=== PATIENT | male | born 1955 | race Asian ===

== ENCOUNTER 2016-09-17 05:38 | Day surgery (SDC) | payer OTHER ==
[~2016-09-17] VITALS: Ht 162.6 cm; Wt 60.0 kg
[2016-09-17] MEDS ORDERED: SODIUM CHLORIDE 0.9% 1,000 ML IV ONE ×2 (06:06→06:15)
[2016-09-17] MEDS ORDERED: GEMF600T3 PO (06:57)
[2016-09-17] MEDS ORDERED: MONT10TA21 PO (06:57)
[2016-09-17] MEDS ORDERED: ASPI-1093 PO (06:57)
[2016-09-17] MEDS ORDERED: BECL8.7A5 IH (06:57)
[2016-09-17] MEDS ORDERED: MIDAZOLAM HCL 2 MG/2 ML VIAL ONE (07:51)
[2016-09-17] MEDS ORDERED: FentaNYL CITRATE-PF 100 MCG/2 ML VIAL ONE (07:52)
[2016-09-17] MEDS ORDERED: MethylPREDNISolone SOD SUCC 125 MG/2 ML VIAL IVP ONE (08:30)
[2016-09-17] MEDS ORDERED: ALBUTEROL SULFATE 2.5 MG/0.5 ML NEB SOLUTION NEB ONE (16:34)
[2016-09-17] MEDS ORDERED: BENZOCAINE 20% 50 MCG/SPRAY 57 GM TP ONE (16:34)
[2016-09-17] MEDS ORDERED: LIDOCAINE HCL 2% 30 ML JELLY TP ONE (16:34)
[2016-09-17] MEDS ORDERED: LIDOCAINE HCL 4% 50 ML SOLUTION TP ONE (16:34)
[2016-09-17] MEDS ORDERED: EPINEPHrine 1:1,000 [1 MG/ML] AMP IM ONE (16:34)
[2016-09-17] MEDS ORDERED: OXYGEN THERAPY IH SCH (20:00)
== END 2016-09-17 09:40 | disposition home or self-care (01) ==
LOC: SURGERY 05:38
PROVIDERS: ATTEND Internal Medicine Critical Care Medicine
DX: J38.4 Edema of larynx (principal); B37.0 Candidal stomatitis; M19.90 Unspecified osteoarthritis, unspecified site; K21.9 Gastro-esophageal reflux disease without esophagitis
CPT/HCPCS: 31623; 31624; 71010; 87015 ×2; 87070; 87101; 87147; 87205; 87220; 88108; 88312; J0171; J2250; J2930; J3010; J7030

== ENCOUNTER 2021-01-21 06:19 | Day surgery (SDC) | payer OTHER ==
[2021-01-18 08:54] LABS: COVID AG,FIA SOURCE NASOPHARYNGEAL
[~2021-01-21] VITALS: Ht 165.1 cm; Wt 61.7 kg
[~2021-01-21 06:19] MED LIST: ASPI-1444 PO; CHOL200016 PO; EZET10TA57 PO; FENO67CA8 PO; ICOS1CAP PO; METO-558 PO; MONT-35 PO; OMEG-102 PO; ROSU20TA73 PO; SODIUM CHLORIDE 0.9% 1,000 ML ONE
[2021-01-21] MEDS ORDERED: ALBUTEROL SULFATE 2.5 MG/0.5 ML NEB SOLUTION NEB ONE (06:20)
[2021-01-21] MEDS ORDERED: BENZOCAINE 20% 50 MCG/SPRAY 57 GM TP ONE (06:20)
[2021-01-21] MEDS ORDERED: LIDOCAINE 2% 30 ML JELLY TP ONE (06:20)
[2021-01-21] MEDS ORDERED: SODIUM CHLORIDE 0.9% 1,000 ML IV ONE (06:30)
[2021-01-21] MEDS ORDERED: FentaNYL CITRATE PF 100 MCG/2 ML VIAL ONE (07:23)
[2021-01-21] MEDS ORDERED: MIDAZOLAM HCL 5 MG/ML VIAL ONE (07:23)
[2021-01-21 08:10] LABS: GLUCOMETER DEV NAME(LOC) SDS.; GLUCOSE,POINT OF CARE 118 MG/DL (70-110)
[2021-01-21] MEDS ORDERED: MethylPREDNISolone SOD SUCC 125 MG/2 ML VIAL IVP ONE (09:00)
[2021-01-21] MEDS ORDERED: MethylPREDNISolone SOD SUCC 125 MG/2 ML VIAL ONE (09:18)
[2021-01-21] MEDS ORDERED: OXYGEN THERAPY IH SCH (20:00)
== END 2021-01-21 10:50 | disposition home or self-care (01) ==
LOC: SURGERY 06:19
PROVIDERS: ATTEND Internal Medicine Critical Care Medicine
DX: J38.4 Edema of larynx (principal); B37.0 Candidal stomatitis; E11.9 Type 2 diabetes mellitus without complications; E78.00 Pure hypercholesterolemia, unspecified; I10 Essential (primary) hypertension; Z87.891 Personal history of nicotine dependence; Z72.89 Other problems related to lifestyle; J45.909 Unspecified asthma, uncomplicated; Z79.82 Long term (current) use of aspirin; Z98.890 Other specified postprocedural states
CPT/HCPCS: 31623; 31624; 71045; 82962; 87015; 87070; 87101; 87205; 87206; 87220; 87426; 88108; 88184; 88185; 88312; C9803; J2250; J2930; J3010; J7030; J7613

== ENCOUNTER 2022-10-06 06:14 | Day surgery (SDC) | payer OTHER ==
[~2022-10-06] VITALS: Ht 165.1 cm; Wt 63.6 kg
[~2022-10-06 06:14] MED LIST changes: -CHOL200016 PO; +CHOL200059 PO; +FENO67CA16 PO; -FENO67CA8 PO; -SODIUM CHLORIDE 0.9% 1,000 ML ONE
[2022-10-06] MEDS ORDERED: BENZOCAINE 20% 50 MCG/SPRAY 57 GM TP ONE (06:15)
[2022-10-06] MEDS ORDERED: LIDOCAINE 2% 11 ML JELLY TP ONE (06:15)
[2022-10-06] MEDS ORDERED: LIDOCAINE 4% 50 ML SOLUTION TP ONE (06:15)
[2022-10-06] MEDS ORDERED: SODIUM CHLORIDE 0.9% 1,000 ML IV ONE (07:00)
[2022-10-06] MEDS ORDERED: METF-81 PO (07:18)
[2022-10-06] MEDS ORDERED: OMEP20 PO (07:18)
[2022-10-06] MEDS ORDERED: SODIUM CHLORIDE 0.9% 1,000 ML ONE (07:36)
[2022-10-06] MEDS ORDERED: FentaNYL CITRATE PF 100 MCG/2 ML VIAL ONE (08:02)
[2022-10-06] MEDS ORDERED: MIDAZOLAM HCL 2 MG/2 ML VIAL ONE (08:02)
[2022-10-06 08:11] LABS: GLUCOMETER DEV NAME(LOC) SDS.; GLUCOSE,POINT OF CARE 109 MG/DL (70-110)
[2022-10-06] MEDS ORDERED: MethylPREDNISolone SOD SUCC 125 MG/2 ML VIAL IVP ONE (09:30)
== END 2022-10-06 11:05 | disposition home or self-care (01) ==
LOC: SURGERY 06:14
PROVIDERS: ATTEND Internal Medicine Critical Care Medicine
DX: J38.4 Edema of larynx (principal); B37.0 Candidal stomatitis; Z79.899 Other long term (current) drug therapy; J43.9 Emphysema, unspecified; I10 Essential (primary) hypertension; Z72.89 Other problems related to lifestyle; E11.9 Type 2 diabetes mellitus without complications; Z98.890 Other specified postprocedural states
CPT/HCPCS: 31623; 88112; 82962; 87206; 87101; 87220; 87070; 31624; 71045; 87015; J3010; J2250; Q9967; J7030; Z7610

== ENCOUNTER 2023-12-18 07:00 | Day surgery (SDC) | payer OTHER ==
[~2023-12-18] VITALS: Ht 165.1 cm; Wt 63.6 kg
[~2023-12-18 07:00] MED LIST changes: +METF-81 PO; +METO-325 PO; -METO-558 PO; +OMEP20 PO; +SODIUM CHLORIDE 0.9% 1,000 ML ONE
[2023-12-18] MEDS ORDERED: ALBUTEROL SULFATE 2.5 MG/0.5 ML NEB SOLUTION NEB ONE (07:01)
[2023-12-18] MEDS ORDERED: LIDOCAINE 2% 11 ML JELLY TP ONE (07:01)
[2023-12-18] MEDS ORDERED: LIDOCAINE 4% 50 ML SOLUTION TP ONE (07:01)
[2023-12-18] MEDS ORDERED: BENZOCAINE 20% 50 MCG/SPRAY 57 GM TP ONE (07:01)
[2023-12-18] MEDS ORDERED: FentaNYL CITRATE PF 100 MCG/2 ML VIAL ONE (07:37)
[2023-12-18] MEDS ORDERED: MIDAZOLAM HCL 2 MG/2 ML VIAL ONE (07:38)
[2023-12-18] MEDS: SODIUM CHLORIDE 0.9% 1,000 ML IV ONE (07:46)
[2023-12-18 08:21] LABS: GLUCOMETER DEV NAME(LOC) SDS.; GLUCOSE,POINT OF CARE 125 MG/DL (70-110)
[2023-12-18 09:40] VITALS: PULSE 87; RESP 12; O2SAT 100
[2023-12-18] MEDS ORDERED: MethylPREDNISolone SOD SUCC 125 MG/2 ML VIAL ONE (10:10)
[2023-12-18] MEDS: MethylPREDNISolone SOD SUCC 125 MG/2 ML VIAL IVP ONE (10:32)
== END 2023-12-18 11:50 | disposition home or self-care (01) ==
LOC: SURGERY 07:00
PROVIDERS: ATTEND Internal Medicine Critical Care Medicine
DX: R05.3 Chronic cough (principal); J38.4 Edema of larynx; B37.0 Candidal stomatitis; R06.2 Wheezing; R04.2 Hemoptysis; J98.09 Other diseases of bronchus, not elsewhere classified; J84.10 Pulmonary fibrosis, unspecified; J98.8 Other specified respiratory disorders; I10 Essential (primary) hypertension; E11.9 Type 2 diabetes mellitus without complications; E78.00 Pure hypercholesterolemia, unspecified; Z85.21 Personal history of malignant neoplasm of larynx; Z87.891 Personal history of nicotine dependence; Z79.899 Other long term (current) drug therapy; Z98.890 Other specified postprocedural states
CPT/HCPCS: 31623; 82962; 87206; 87101; 87220; 87070; 88108; 31624; 94640; 71045; 87015; J3010; J2250; J2919; J7030; J7613; Z7610